=== PATIENT | female | born 1990 | race Caucasian/White ===

== ENCOUNTER → 2020-03-09 | Outpatient (CLI) | payer OTHER | LOC: COL.RAD 07:15 | DX: G96.19 Other disorders of meninges, not elsewhere classified (principal) | CPT/HCPCS: A9585 ==

== ENCOUNTER → 2020-08-18 | Outpatient (CLI) | payer OTHER | LOC: COL.RAD 07:03 | DX: K82.4 Cholesterolosis of gallbladder (principal) ==

== ENCOUNTER → 2021-12-21 | Outpatient (CLI) | payer OTHER | LOC: COL.RAD 12-20 11:15 | DX: M50.322 Other cervical disc degeneration at C5-C6 level (principal); M50.321 Other cervical disc degeneration at C4-C5 level; G96.191 Perineural cyst; M54.6 Pain in thoracic spine ==